=== PATIENT | male | born 1995 | race Caucasian/White ===

== ENCOUNTER 2018-12-19 12:17 | Emergency (ER) | payer OTHER ==
[~2018-12-19] VITALS: Ht 176.5 cm; Wt 95.5 kg
[2018-12-19] MEDS ORDERED: IV NORMAL SALINE 1,000ML 1,000 ML IV ONE (12:45)
--- NOTE | 2018-12-19 13:05 | PHYS DOC ---
Past History Past Medical History: Arthritis Past Surgical History: Other Alcohol Use: Occasionally Drug Use: None Adult General Chief Complaint Chief Complaint: SEIZURE HPI HPI 22-year-old male presents after syncopal episode and possible seizure. Around 9 PM last night the patient sat down to have his cut his hair. He started to feel nauseous. The nausea increased and he began to feel warm feeling all over. He vomited twice and then slumped over and passed out. He was unconscious for less than a minute according to his , but after he woke up he was not immediately normal. While he was unconscious, it appeared as though his upper body and extremities were quivering. After he woke up, he felt like he had difficulty moving his head and extremities. He also had no hearing and could not speak. The lack of hearing changed over to tendinitis and then slowly resolved. This will process took several minutes. The patient did not appear to come completely back to baseline for almost an hour. The patient had 4 episodes of diarrhea earlier in the day. He thought it was due to possible bad food the night before at a [employer] restaurant. The patient assumed all the symptoms were due to dehydration 3 did not come to his room last night. After talking to some other family members he was encouraged to get evaluated today. He is feeling normal today. The patient is on no regular medications. He was recently on narcotic pain medications for an ankle injury, but has not taken any of those in at least 3 days. He denies alcohol or drug use. He is not using any supplements. The patient did have a few syncopal episodes as a teenager, but these were very short and he immediately woke up and felt normal. There are believed to be vasovagal syncope at that time. There is a family history of seizures on his father's side as well as brain aneurysm in one uncle. He denies fever or chills. He has had no vomiting or diarrhea today. Review of Systems Review of Systems Constitutional: Denies fever or chills [] Eyes: Denies change in visual acuity, redness, or eye pain [] HENT: Denies nasal congestion or sore throat [] Respiratory: Denies cough or shortness of breath [] Cardiovascular: No additional information not addressed in HPI [] GI: Denies abdominal pain, nausea, vomiting, bloody stools or diarrhea [] : Denies dysuria or hematuria [] Musculoskeletal: Denies back pain or joint pain [] Integument: Denies rash or skin lesions [] Neurologic: Syncope, seizure. Denies headache, focal weakness or sensory changes [] Endocrine: Denies polyuria or polydipsia [] All other systems were reviewed and found to be within normal limits, except as documented in this note. Current Medications Current Medications Current Medications Medications (Trade) Dose Ordered Sig/Keon Start Time Stop Time Status Last Admin Dose Admin Sodium Chloride 1,000 ml @ 1,000 mls/hr 1X ONCE 12/19/18 12:45 12/19/18 13:44 Allergies Allergies Allergies Coded Allergies Type Severity Reaction Last Updated Verified No Known Drug Allergies 12/19/18 No Physical Exam Physical Exam Constitutional: Well developed, well nourished, no acute distress, non-toxic appearance. [] HENT: Normocephalic, atraumatic, bilateral external ears normal, oropharynx moist, no oral exudates, nose normal. [] Eyes: PERRLA, EOMI, conjunctiva normal, no discharge. [] Neck: Normal range of motion, no tenderness, supple, no stridor. [] Cardiovascular:Heart rate regular rhythm, no murmur [] Lungs & Thorax: Bilateral breath sounds clear to auscultation [] Abdomen: Bowel sounds normal, soft, no tenderness, no masses, no pulsatile masses. [] Skin: Warm, dry, no erythema, no rash. [] Back: No tenderness, no CVA tenderness. [] Extremities: No tenderness, no cyanosis, no clubbing, ROM intact, no edema. [] Neurologic: Alert and oriented X 3, normal motor function, normal sensory function, no focal deficits noted. [] Psychologic: Affect normal, judgement normal, mood normal. [] Current Patient Data Vital Signs Vital Signs Date Time Temp Pulse Resp B/P (MAP) Pulse Ox O2 Delivery O2 Flow Rate FiO2 12/19/18 12:28 98.1 89 18 97 Room Air EKG EKG Sinus rhythm, rate 79, normal axis, no ST elevations or depressions.[] Radiology/Procedures Radiology/Procedures [] Impressions: CT HEAD WO CONTRAST History: SYNCOPE LAST NIGHT, DID NOT HIT HEAD Comparison: None. Technique: Noncontrast CT imaging was performed of the head. Exposure: One or more of the following individualized dose reduction techniques were utilized for this examination: 1. Automated exposure control 2. Adjustment of the mA and/or kV according to patient size 3. Use of iterative reconstruction technique. Findings: No acute extra-axial or parenchymal hemorrhage is identified. There is no significant intra-axial mass effect, midline shift, or extra-axial fluid collection. The nicole-white differentiation of the major vascular territories is preserved. The ventricles, sulci, and cisterns are within normal limits in size and configuration. The mastoid air cells and the visualized paranasal sinuses are aerated. No acute calvarial abnormality is identified. Impression: 1. No acute intracranial abnormality is identified. Electronically signed by: Sylvie Mandujano MD (12/19/2018 1:40 PM) [id number] DICTATED AND SIGNED BY: SYLVIE MANDUJANO MD DATE: 12/19/18 1340 CC: JOE ALONSO DO; TERI ARELLANO DO ~ CHEST PA LATERAL History: SYNCOPE Comparison: None. Findings: The cardiomediastinal silhouette is normal. Pulmonary vasculature is normal. The lungs are clear. No pleural effusion or pneumothorax is seen. There is no acute bone abnormality. IMPRESSION: No acute cardiopulmonary process. Electronically signed by: Dago Ha MD (12/19/2018 1:38 PM) [id number] DICTATED AND SIGNED BY: DAGO HA MD DATE: 12/19/18 1338 CC: JOE ALONSO DO; TERI ARELLANO DO ~ Course & Med Decision Making Course & Med Decision Making Pertinent Labs and Imaging studies reviewed. (See chart for details) The patient's EKG is unremarkable. His troponin is elevated, but below the cutoff normal. His chest x-ray is unremarkable. His head CT is negative for findings. I'm not completely sure if the patient had a vasovagal associated event or if it was seizure activity. I have advised the patient to follow up with neurology, Dr. Nieves and I have provided contact information to make an appointment. I do not see any evidence that would justify admitting the patient at this time. He is stable for discharge. If any of his symptoms return, the patient should immediately come back to emergency room. [] Dragon Disclaimer Dragon Disclaimer This electronic medical record was generated, in whole or in part, using a voice recognition dictation system. Departure Departure: Impression: Primary Impression: Syncope Disposition: HOME, SELF-CARE Condition: STABLE Referrals: TERI ARELLANO DO (PCP) Patient Instructions: Seizure, Adult, Mohr-[id number], Syncope, [id number] Problem Qualifiers Primary Impression: Syncope Syncope type: unspecified Qualified Codes: R55 - Syncope and collapse JOE ALONSO DO Dec 19, 2018 13:05
[2018-12-19 13:18] LABS: BASO % 1 % (0-3); EOS # 0.1 x10^3/uL (0.0-0.7); EOS % 1 % (0-3); HEMATOCRIT 45.3 % (39.0-53.0); HEMOGLOBIN 15.9 g/dL (13.0-17.5); LYMPH # 1.5 x10^3/uL (1.0-4.8); LYMPH % 20 % (24-48); MEAN CORPUSCULAR HEMOGLOBIN 30 pg (25-35); MEAN CORPUSCULAR HGB CONC 35 g/dL (31-37); MEAN CORPUSCULAR VOLUME 86 fL (79-100); MONO # 0.5 x10^3/uL (0.0-1.1); MONO % 7 % (0-9); NEUT # 5.2 x10^3uL (1.8-7.7); NEUT % 71 % (31-73); PLATELET COUNT 242 x10^3/uL (140-400); RED CELL DISTRIBUTION WIDTH 13.3 % (11.5-14.5); WHITE BLOOD COUNT 7.3 x10^3/uL (4.0-11.0)
[2018-12-19 13:26] LABS: ALBUMIN 4.2 g/dL (3.4-5.0); ALBUMIN/GLOBULIN RATIO 1.2 (1.0-1.7); CALCIUM 9.5 mg/dL (8.5-10.1); CREATININE 1.1 mg/dL (0.7-1.3); GFR 83.7; POTASSIUM 3.6 mmol/L (3.5-5.1); TOTAL BILIRUBIN 0.4 mg/dL (0.2-1.0); TOTAL PROTEIN 7.8 g/dL (6.4-8.2)
[2018-12-19 13:30] LABS: BARBITURATES NEG (NEG); BENZODIAZEPINES NEG (NEG); CANNABINOIDS NEG (NEG); COCAINE NEG (NEG); METHADONE NEG (NEG); OPIATES NEG (NEG); PHENCYCLIDINE NEG (NEG)
[2018-12-19 13:31] LABS: AMPHETAMINE/METHAMPHETAMINE NEG (NEG)
[2018-12-19 13:34] LABS: BACTERIA,URINE 0 /HPF (0-FEW); BILIRUBIN,URINE NEG (NEG); CLARITY,URINE CLEAR; COLOR,URINE YELLOW; GLUCOSE,URINE NEG (NEG); NITRITE,URINE NEG (NEG); RBC,URINE 0 /HPF (0-2); SQUAMOUS EPITHELIAL CELL,UR OCC /LPF; UROBILINOGEN,URINE 0.2 mg/dL (0.2 mg/dL); WBC,URINE 0 /HPF (0-4)
--- NOTE | 2018-12-19 13:40 | RAD ---
CHEST PA LATERAL History: SYNCOPE Comparison: None. Findings: The cardiomediastinal silhouette is normal. Pulmonary vasculature is normal. The lungs are clear. No pleural effusion or pneumothorax is seen. There is no acute bone abnormality. IMPRESSION: No acute cardiopulmonary process. Electronically signed by: Dago England MD (12/19/2018 1:38 PM) [id number]
--- NOTE | 2018-12-19 13:42 | RAD ---
CT HEAD WO CONTRAST History: SYNCOPE LAST NIGHT, DID NOT HIT HEAD Comparison: None. Technique: Noncontrast CT imaging was performed of the head. Exposure: One or more of the following individualized dose reduction techniques were utilized for this examination: 1. Automated exposure control 2. Adjustment of the mA and/or kV according to patient size 3. Use of iterative reconstruction technique. Findings: No acute extra-axial or parenchymal hemorrhage is identified. There is no significant intra-axial mass effect, midline shift, or extra-axial fluid collection. The nicole-white differentiation of the major vascular territories is preserved. The ventricles, sulci, and cisterns are within normal limits in size and configuration. The mastoid air cells and the visualized paranasal sinuses are aerated. No acute calvarial abnormality is identified. Impression: 1. No acute intracranial abnormality is identified. Electronically signed by: Ashish Mckeon MD (12/19/2018 1:40 PM) [facility]
[2018-12-19 14:05] VITALS: BP 129/73
--- NOTE | 2018-12-19 16:14 | EKG ---
[address] [address] Test Date: 2018-12-19 Test Time: 13:08:37 Pat Name: ONI LONG Department: Room: Gender: M Condominium Manager: JOSEPH : [id number] Requested By: JOE ALONSO Order Number: [id number] Reading MD: Mina Patel Measurements Intervals [place] Rate: 79 P: 47 AL: 144 QRS: 34 QRSD: 104 T: 18 QT: 354 QTc: 407 Interpretive Statements SINUS RHYTHM Electronically Signed On 12-25-2018 13:06:24 CDT by Mina Patel
== END 2018-12-19 14:05 | disposition home or self-care (01) ==
LOC: ER 12:17
DX: R55 Syncope and collapse (principal); R11.2 Nausea with vomiting, unspecified; R19.7 Diarrhea, unspecified; M19.90 Unspecified osteoarthritis, unspecified site
CPT/HCPCS: 36415; 70450; 71046; 80053; 80307; 81001; 84484; 85025; 93005; 96360; 99285-25; J7030